=== PATIENT | male | born 1965 | race Hispanic/Latino ===

== ENCOUNTER → 2022-11-14 | Outpatient (CLI) | payer OTHER | END | disposition home or self-care (01) | LOC: RAH 12:45 | PROVIDERS: ATTEND Internal Medicine Cardiovascular Disease | DX: I08.0 Rheumatic disorders of both mitral and aortic valves (principal); R01.1 Cardiac murmur, unspecified | CPT/HCPCS: 93306 ==

== ENCOUNTER 2024-10-30 09:47 | Emergency (ER) | payer MEDICARE, OTHER ==
[~2024-10-30] VITALS: Ht 172.7 cm; Wt 91.2 kg
--- NOTE | 2024-10-30 09:57 | ERN ---
General Chief Complaint: Lower Extremity Pain/Injury Stated Complaint: LEFT CALF PAIN Time Seen by MD: 09:52 History of Present Illness Initial Comments 58-year-old male brought in by EMS from home in [place] for left knee pain and cramping. Patient reports for the last two days he has had left calf and knee pain and cramping. Neurovascularly intact. There is no obvious deformity or injury. He denies any swelling or trauma. He does have a history of a stroke with left-sided deficits in his decreased ambulation and movement to that leg. He also has left upper arm deficit. Allergies: Coded Allergies: No Known Allergies (Unverified Allergy, Unknown, 10/30/24) Past Medical History Past Medical History: Diabetes-Type II, Hypertension, Stroke Medical History Other: LT SIDE WEAKNESS Past Surgical History: Other Surgical History Other: HEART IMPLANT ROS Dictation CONSTITUTIONAL: No chills, no fever, no weakness, no diaphoresis, no malaise. HEAD/FACE: No signs of trauma. EENT: No eye pain, no blurred vision, no tearing, no double vision, no ear pain, no ear discharge, no nose pain, no nasal congestion, no throat pain, no throat swelling, no mouth pain. RESPIRATORY: No cough, no orthopnea, no SOB, no stridor, no wheezing. CARDIOVASCULAR: No chest pain, no edema, no palpitations, no syncope. GASTROINTESTINAL/ABDOMINAL: No abdominal pain, no constipation, no diarrhea, no nausea, no vomiting. GENITOURINARY: No abnormal discharge, no dysuria, no frequent urination, no hematuria. No complaints of pain in the genitals. MUSCULOSKELETAL: Left knee pain/cramping behind the knee INTEGUMENTARY: No change in color, no change in hair/nails, no dryness, no lesion, no lumps, no rash. NEUROLOGICAL/PSYCH: No anxiety, not depressed, no emotional problem, no h eadache, no numbness, no pre-existing deficit, no history of seizures, no tremors, no weakness. HEMATOLOGIC/LYMPHATIC: Not anemic, no history of blood clots, no apparent bleeding, no bruising, glands not swollen. All Systems Negative, Except as Noted. Physical Exam Physical Exam Dictation VITAL SIGNS: Reviewed. GENERAL APPEARANCE: Alert, oriented x3, no acute distress HEAD AND FACE: Non-traumatic. EYES: PERRL, pink conjunctivas, eyelid no trauma, anterior chamber clear. EARS: Pinnas intact and no signs of trauma or erythema. Ear canals clear and no discharge. TMs no erythema. NOSE: No discharge, no bleeding. OROPHARYNX: Mouth normal, teeth no caries, tongue pink. Pharynx clear, no erythema. Tonsils no exudates, no abscesses noted. Mucous membrane moist. NECK: Supple, non-tender, no thyromegaly, no masses, no JVD, no bruits. BREAST: Deferred. CHEST: No tenderness, no crepitus, no paradoxical movement, no retractions. LUNGS: Clear, well-ventilated, symmetric, no rales, no wheezing, no rhonchi, no stridor, good breath sounds bilaterally. HEART: Regular rate, regular rhythm, no murmur, no gallops. VASCULAR: No peripheral edema. ABDOMEN: Soft, positive bowel sounds, nondistended, no guarding, nontender, no rebound, no masses no hepatomegaly, no splenomegaly, no Park's sign, no hernias. RECTAL: Deferred. GENITAL: Deferred. NEUROLOGICAL: Normal speech, gross motor function intact, gross sensory function intact. MUSCULOSKELETAL: Decreased range of motion of the left leg and left arm status post stroke, chronic for patient. Otherwise unremarkable. Neurovascularly intact in the leg, able to flex and extend the ankles in the knee. No obvious swelling or deformity. EXTREMITIES: Nontender, full range of motion. SKIN: Color pink, dry, no turgor, no rash, no lacerations, no abrasions, no contusions. LYMPHATICS: Deferred. Results Laboratory and Microbiology Lab and Micro Result Laboratory Tests Test 10/30/24 10:41 White Blood Count 7.7 K/uL (4.8-10.8) Red Blood Count 4.91 MIL/uL (4.50-6.20) Hemoglobin 14.8 g/dL (14.0-18.0) Hematocrit 43.9 % (42-54) Mean Corpuscular Volume 89.4 fL (79-99) Mean Corpuscular Hemoglobin 30.1 pg (27.0-33.0) Mean Corpuscular Hemoglobin Concent 33.7 g/dL (32.0-36.0) Red Cell Distribution Width 14.8 % (11.0-15.5) Platelet Count 429 K/uL (130-400) H Mean Platelet Volume 9.5 fL (7.5-10.5) Immature Granulocyte % (Auto) 0.9 % (0-1) Neutrophils (%) (Auto) 78.3 % (40.0-77.0) H Lymphocytes (%) (Auto) 10.8 % (21.0-51.0) L Monocytes (%) (Auto) 9.2 % (3.0-13.0) Eosinophils (%) (Auto) 0.7 % (0.0-8.0) Basophils (%) (Auto) 0.1 % (0.0-5.0) Neutrophils # (Auto) 6.0 K/uL (1.8-7.7) Lymphocytes # (Auto) 0.8 K/uL (1.0-4.8) L Monocytes # (Auto) 0.7 K/uL (0.1-1.0) Eosinophils # (Auto) 0.05 K/uL (0.00-0.70) Basophils # (Auto) 0.01 K/uL (0.00-0.20) Absolute Immature Granulocyte (auto 0.07 K/uL (0-1) Nucleated Red Blood Cells 0.0 % (0.0-0.19) Sodium Level 135 mmol/L (136-145) L Potassium Level 3.5 mmol/L (3.5-5.1) Chloride Level 98 mmol/L (101-111) L Carbon Dioxide Level 23 mmol/L (21-32) Blood Urea Nitrogen 37 mg/dL (7-18) H Creatinine 1.9 mg/dL (0.5-1.3) H Glomerular Filtration Rate Calc 40 mL/min (>90) Random Glucose 125 mg/dL (70-105) H Total Calcium 8.9 mg/dL (8.5-10.1) Total Creatine Kinase 69 U/L (21-232) MDM CC: Left calf pain and cramping Historian: Patient Comorbidities: Diabetes type 2, hypertension, history of stroke with the contractions Limitations by social determinants of health: None Differential diagnosis: Cramping /musculoskeletal pain, DVT, bony abnormality, other. Vital signs: Stable, remained stable here in the ER. Patient was a GCS of 15. Neurovascularly intact. He was moving his arms and legs at baseline for him. Labs (independently ordered and interpreted by me): CBC normal, BMP is creatinine 1.9 otherwise unremarkable. CK is stable. External chart review: No previous kidney labs. I suspect this is chronic CKD since he reports CKD history. DVT study (independently interpreted by me ): No evidence of DVT. Right knee x-ray ( independently interpreted by me ): No bony abnormalities, he does have severe peripheral vascular disease, no major effusions. Treatment in ED: IV morphine, IV Toradol, orphenadrine Re-evaluation: Pain improved. I do not see any life-threatening pathology. No signs of blood clots or acute neurovascular disease. No signs of infection. No signs of stroke or any neurologic disorder. I suspect musculoskeletal pain due To the contractions. Plan: we will DC with orphenadrine for muscle relaxer and an NSAID, short course due to the CKD. We will recommend Tylenol. We will recommend PCP follow up as needed. ED Course Orders Procedure Category Date Status Time Ketorolac PHA 10/30/24 Complete Tromethamine 15mg/Ml 10:00 Us Venous Doppler US 10/30/24 Resulted Bilateral 09:52 Knee 3vws Lt RAD 10/30/24 Taken 09:52 Cbc With Differential LAB 10/30/24 Complete 09:52 Basic Metabolic Panel LAB 10/30/24 Complete 09:52 Creatine Kinase, Total LAB 10/30/24 Complete 09:52 Orphenadrine Citrate PHA 10/30/24 Complete (Norflex) 10:00 Morphine 4mg Syg PHA 10/30/24 Complete (Morphine 4mg Syg) 10:00 Orphenadrine Citrate PHA 10/30/24 In Process (Norflex) 12:00 Ketorolac PHA 10/30/24 Complete Tromethamine 15mg/Ml 11:30 Morphine 4mg Syg PHA 10/30/24 Complete (Morphine 4mg Syg) 11:30 Current Medications Medications (Trade) Dose Ordered Sig/Gus Route PRN Reason Start Time Stop Time Status Last Admin Dose Admin Ketorolac Tromethamine (toRADol) 15 mg ONCE ONCE IM 10/30/24 11:30 10/30/24 11:35 DC 10/30/24 11:42 Ketorolac Tromethamine (toRADol) 15 mg ONCE ONCE IV 10/30/24 10:00 10/30/24 11:32 DC Morphine Sulfate (morPHINE 4MG SYG) 4 mg ONCE ONCE IM 10/30/24 11:30 10/30/24 11:38 DC 10/30/24 11:42 Morphine Sulfate (morPHINE 4MG SYG) 4 mg ONCE ONCE IVP 10/30/24 10:00 10/30/24 11:32 DC Orphenadrine Citrate (Norflex) 60 mg ONCE ONCE IM 10/30/24 12:00 10/30/24 12:01 10/30/24 11:42 Orphenadrine Citrate (Norflex) 60 mg ONCE ONCE IVP 10/30/24 10:00 10/30/24 11:32 DC Vital Signs Date Time Temp Pulse Resp B/P (MAP) Pulse Ox O2 Delivery O2 Flow Rate FiO2 10/30/24 11:23 98.4 86 20 155/87 98 Room Air* 0 21 10/30/24 09:49 98.4 86 155/87 98 Room Air 0 DX & DISP Disposition: Discharge Departure Impression: Primary Impression: Leg cramping Additional Impressions: Contracture of muscle of lower leg, CKD (chronic kidney disease) Condition: Stable Scripts Meloxicam (Meloxicam) 15 Mg Tablet 15 MG PO DAILY PRN for PAIN for 10 Days, #10 TAB Prov: ELSIE CASTELLANOS DO 10/30/24 Orphenadrine Citrate (Orphenadrine Citrate) 100 Mg Tablet.er 1 TAB PO [id number] PRN for pain for 10 Days, #20 TAB 0 Refills Prov: ELSIE CASTELLANOS DO 10/30/24 Referrals: WANDA STRICKLAND MD (PCP) ELSIE CASTELLANOS DO Oct 30, 2024 09:57
[2024-10-30] MEDS ORDERED: ketOROlac 15MG/ML VIAL (15MG/ML) IV ONE (10:00)
[2024-10-30] MEDS ORDERED: ORPHENADRINE 60MG/2ML IVP ONE (10:00)
[2024-10-30] MEDS ORDERED: morPHINE 4 MG SYG IVP ONE (10:00)
--- NOTE | 2024-10-30 10:44 | HMCIMG ---
ULTRASOUND VENOUS DOPPLER, BILATERAL LOWER EXTREMITIES INDICATION: Bilateral lower extremity pain and swelling TECHNIQUE: Routine grayscale and color Doppler ultrasound of the bilateral lower extremity veins performed. COMPARISON: No priors. FINDINGS: The demonstrated veins of the bilateral lower extremity including the common femoral vein, femoral vein, and popliteal vein are associated with normal compressibility, augmentation, and flow. Normal respiratory variation was identified. No evidence for echogenic intraluminal thrombus formation. IMPRESSION: No sonographic evidence for deep venous thrombosis within the bilateral lower extremity veins.
[2024-10-30 11:04] LABS: BASOPHILS # (AUTO) 0.01 K/uL (0.00-0.20); BASOPHILS % (AUTO) 0.1 % (0.0-5.0); EOSINOPHILS # (AUTO) 0.05 K/uL (0.00-0.70); EOSINOPHILS % (AUTO) 0.7 % (0.0-8.0); HEMATOCRIT 43.9 % (42-54); IMMATURE GRANULOCYTE ABSOLUTE 0.07 K/uL (0-1); LYMPHOCYTES # (AUTO) 0.8 K/uL (1.0-4.8); LYMPHOCYTES % (AUTO) 10.8 % (21.0-51.0); MEAN CORPUSCULAR HEMOGLOBIN 30.1 pg (27.0-33.0); MEAN CORPUSCULAR HGB CONC 33.7 g/dL (32.0-36.0); MEAN CORPUSCULAR VOLUME 89.4 fL (79-99); MONOCYTES # (AUTO) 0.7 K/uL (0.1-1.0); MONOCYTES % (AUTO) 9.2 % (3.0-13.0); NEUTROPHILS % (AUTO) 78.3 % (40.0-77.0); PLATELET COUNT (AUTO) 429 K/uL (130-400); RED BLOOD CELL COUNT(AUTO) 4.91 MIL/uL (4.50-6.20); RED CELL DISTRIBUTION WIDTH 14.8 % (11.0-15.5); WHITE BLOOD COUNT (AUTO) 7.7 K/uL (4.8-10.8)
[2024-10-30 11:23] VITALS: BP 155/87; PULSE 86; RESP 20; TEMP 98.4; O2SAT 98
[2024-10-30 11:24] LABS: CREATININE 1.9 mg/dL (0.5-1.3); POTASSIUM 3.5 mmol/L (3.5-5.1)
[2024-10-30] MEDS: ketOROlac 15MG/ML VIAL (15MG/ML) IM ONE (11:42)
[2024-10-30] MEDS: morPHINE 4 MG SYG IM ONE (11:42)
[2024-10-30] MEDS: ORPHENADRINE 60MG/2ML IM ONE (11:42)
[2024-10-30] MEDS ORDERED: ORPH100T4 PO (11:49)
[2024-10-30] MEDS ORDERED: MELO-108 PO (11:49)
--- NOTE | 2024-10-30 21:45 | HMCIMG ---
LEFT KNEE RADIOGRAPHS - 3 VIEWS INDICATION: Pain COMPARISON: None FINDINGS: AP, lateral, and oblique views. Examination provided for interpretation at 9:42 PM on 10/30/2024. No fracture or dislocation identified. No significant joint effusion is present. Extensive arterial wall calcific plaque. No radiopaque foreign body noted. IMPRESSION: Extensive arterial wall calcific plaque without evidence for fracture or dislocation.
== END 2024-10-30 12:39 | disposition home or self-care (01) ==
LOC: EDH 09:47
DX: I12.9 Hypertensive chronic kidney disease with stage 1 through stage 4 chronic kidney disease, or unspecified chronic kidney disease (principal); E11.22 Type 2 diabetes mellitus with diabetic chronic kidney disease; N18.9 Chronic kidney disease, unspecified; M62.462 Contracture of muscle, left lower leg; Z86.73 Personal history of transient ischemic attack (TIA), and cerebral infarction without residual deficits
CPT/HCPCS: 99285; 93970; 82550; 80048; 85025; 36415; 73562; 96372 ×3; J1885; J2270; J2360